=== PATIENT | female | born 1990 | race Caucasian/White ===

== ENCOUNTER 2016-09-12 10:08 | Emergency (ER) | payer OTHER ==
[~2016-09-12] VITALS: Ht 165.1 cm; Wt 56.3 kg
[~2016-09-12 10:08] MED LIST: ONDA4TAB7 SL
[2016-09-12 10:21] VITALS: TEMP 37.2; Ht 165.1 cm; Wt 56.3 kg
[2016-09-12] MEDS ORDERED: DPPRI400 SQ (10:58)
[2016-09-12] MEDS ORDERED: HYDR1OIN11 (11:00)
[2016-09-12] MEDS ORDERED: DIPH1TAB PO (11:00)
[2016-09-12] MEDS ORDERED: BUPRTAB PO (11:00)
[2016-09-12] MEDS ORDERED: PRED20TA2 PO (12:07)
[2016-09-12 12:17] VITALS: BP 101/67; PULSE 63; O2SAT 99
--- NOTE | 2016-09-12 17:42 | EMERGENCY ROOM VISIT NOTE ---
History Report prepared by Jhonatan: Sylvain Bowens Under the Supervision of: Dr. Angel Luis Kunz D.O. First contact with patient: 11:43 Chief Complaint: RASH Stated Complaint: ITCHY History of Present Illness The patient is a 26 year old female who presents to the Emergency Room with complaints of improving global itchiness that started at approximately 0 last night. The itchiness was worse this morning. The patient also noticed raised bumps on her back and side this morning that were the color of her skin. She did not notice any red rashes. The patient had two Benadryl caps upon arrival, and her itchiness has since improved. The patient started Wellbutrin two weeks ago. She has not started any new medications since then. The patient also denies using any new soaps or detergents. She did not wear any new clothing or enter any new buildings or shops. She has not been exposed to any new animals or pets. She denies any recent travel. Patient denies headache, change in vision, fevers, chest pain, shortness of breath, nausea, vomiting, diarrhea, pain with urination, and melena. Source of History: patient Onset: 1929 last night Position: other (skin (global)) Quality: other (itchiness) Timing: other (improving) Modifying Factors (Relieving): other (Benadryl) Associated Symptoms: No SOB, No chest pain, No diarrhea, No fevers, No headache, No melena, No nausea, No rash, No urinary symptoms, No vomiting Review of Systems See HPI for pertinent positives & negatives. A total of 10 systems reviewed and were otherwise negative. Past Medical & Surgical Medical Problems: (1) Nausea vomiting and diarrhea Family History Diabetes mellitus Social History Smoking Status: Never Smoker Alcohol Use: occasionally Drug Use: none Marital Status: single Occupation Status: unemployed Current/Historical Medications Scheduled Bupropion Hcl (Wellbutrin Xl), 1 TAB PO QAM Prednisone (Prednisone Tab), 1 TAB PO DAILY Miscellaneous Medications Diphenhydramine Hcl (Benadryl Allergy), 1 TAB PO Hydrocortisone (Topical) (Cortizone-10) Medroxyprogesterone Acetate (Depo-Provera), 1 DOSE SQ Allergies Coded Allergies: No Known Allergies (Unverified , 09/12/16) Physical Exam Vital Signs Date Time Temp Pulse Resp B/P Pulse Ox O2 Delivery O2 Flow Rate FiO2 09/12/16 12:17 63 16 101/67 99 09/12/16 10:21 37.2 99 18 125/89 99 Room Air Physical Exam GENERAL: Sitting on edge of bed, intermittently scratching, no acute distress, non toxic. EYE EXAM: normal conjunctiva. OROPHARYNX: no exudate, no erythema, lips, buccal mucosa, and tongue normal and mucous membranes are moist NECK: supple, no nuchal rigidity, no adenopathy, non-tender LUNGS: Clear to auscultation. Normal chest wall mechanics HEART: no murmurs, S1 normal and S2 normal ABDOMEN: abdomen soft, non-tender, normo-active bowel sounds, no masses, no rebound or guarding. BACK: Back is symmetrical on inspection and there is no deformity, no midline tenderness, no CVA tenderness. SKIN: no rashes and no bruising UPPER EXTREMITIES: upper extremities are grossly normal. LOWER EXTREMITIES: No pitting edema. NEURO EXAM: Normal sensorium, cranial nerves II-XII grossly intact, normal speech, no gross weakness of arms, no gross weakness of legs. Gross sensation intact. Medical Decision & Procedures Medications Administered Medications (Trade) Dose Ordered Sig/Nadja Route Start Time Stop Time Status Last Admin Dose Admin Prednisone (PredniSONE TAB) 20 mg NOW STAT PO 09/12/16 12:02 09/12/16 12:03 DC 09/12/16 12:16 20 MG ED Course ED COURSE: Vital signs were reviewed and were normal. The patients medical record was reviewed The above diagnostic studies were performed and reviewed. ED treatments and interventions as stated above. 1145: The patient was evaluated in room B5. A complete history and physical examination was performed. 1155: Discussed the treatment plan with her. She verbalized understanding and agreement. 1202: Prednisone 20 mg PO. 1205: Upon reevaluation, the patient is ready for discharge .I discussed my findings with the patient and she understands and agrees with the treatment plan. Based on the patients age, coexisting illnesses, exam and lab findings the decision to treat as an outpatient was made. The patient remained stable while under my care. The patient appeared well at the time of discharge. Medical Decision Differential diagnosis: Etiologies such as allergic reaction, anaphylaxis, urticaria, Sandoval-Arcadio syndrome, toxic epidermal necrolysis, erythema multiforme, cellulitis, as well as others were entertained. Patient is a 26-year-old female who presents the ER for diffuse itching throughout her entire body per she notes that she had a rash on her right side which was slightly raised red but this has resolved. 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 No new pets. She has taken Benadryl with almost complete resolution of the itching and rash. Only new medication is Wellbutrin which was started 2 weeks ago. I gave her small dose steroids and instructed her to follow-up with her primary care doctor on Thursday. If symptoms persist she will need to be further evaluated if this could be secondary to Wellbutrin at that time vs an environmental allergen. Discussed with Pt concerning signs and symptoms to watch out for. Pt was instructed to follow up with their PCP and discussed with the patient their option to return to the ED at anytime for persistent or worsening symptoms. The appropriate anticipatory guidance and out-patient management, including indications for return to the emergency department, were explained at length to the patient and understood. Impression Primary Impression: Itching Additional Impression: Rash Scribe Attestation The scribe's documentation has been prepared under my direction and personally reviewed by me in its entirety. I confirm that the note above accurately reflects all work, treatment, procedures, and medical decision making performed by me. Departure Information Dispostion Home / Self-Care Prescriptions Prednisone (Prednisone Tab) 20 Mg Tab 1 TAB PO DAILY, #4 TAB 2 TABS DAILY FOR 2 DAYS, THEN 1 TAB DAILY FOR 2 DAYS, THEN 1/2 TAB DAILY FOR 2 DAYS. Prov: Angel Luis Kunz DO 09/12/16 Referrals Zoraida Sotelo DO (PCP) Forms HOME CARE DOCUMENTATION FORM, IMPORTANT VISIT INFORMATION, WORK / SCHOOL INSTRUCTIONS Patient Instructions My [facility] Additional Instructions Please follow up with your primary care doctor with in the next 24 hours. Any worsening of your symptoms, please return to the ED immediately. This includes fevers grade and 100.4, confusion, persistent rash, worsening itching, or any other concerning signs or symptoms from your standpoint. Please take steroids as prescribed. Please take 50 mg of Benadryl every 6-8 hours as needed for itching. Problem Qualifiers
== END 2016-09-12 12:18 | disposition home or self-care (01) ==
LOC: C.EDB 10:09
DX: L29.9 Pruritus, unspecified (principal); R21 Rash and other nonspecific skin eruption; Z83.3 Family history of diabetes mellitus; Z79.899 Other long term (current) drug therapy

== ENCOUNTER 2016-09-16 12:48 | Emergency (ER) | payer OTHER ==
[~2016-09-16] VITALS: Ht 166.4 cm; Wt 58.0 kg
[~2016-09-16 12:48] MED LIST changes: +BUPRTAB PO; +DIPH1TAB PO; +DPPRI400 SQ; +HYDR1OIN11; -ONDA4TAB7 SL; +PRED20TA2 PO
[2016-09-16 12:53] VITALS: TEMP 37.1; Ht 166.4 cm; Wt 58.0 kg
[2016-09-16] MEDS ORDERED: SODIUM CHLORIDE 0.9% 1000ML 1,000 ML IV STA (13:14)
[2016-09-16] MEDS ORDERED: DiphenhydrAMINE HCL 50 MG/ML VIAL IV STA (13:14)
[2016-09-16] MEDS ORDERED: METHYLPREDNISOLONE 125 MG VIAL IV STA (13:14)
[2016-09-16] MEDS ORDERED: FAMOTIDINE 20MG/102 ML D5W IV STA (13:14)
--- NOTE | 2016-09-16 13:43 | DIAGNOSTIC IMAGING REPORT ---
SINGLE VIEW CHEST CLINICAL HISTORY: Atypical chest pain. FINDINGS: An AP, portable, upright chest radiograph is obtained. No prior studies are available for comparison at the time of dictation. The cardiomediastinal silhouette is unremarkable. The lungs and pleural spaces are clear. There is mild apical scarring. No pneumothorax is seen. The bony thorax is grossly intact. IMPRESSION: No active disease in the chest. Electronically signed by: Daryl Arora M.D. 09/16/2016 1:42 PM Dictated Date/Time: 09/16/2016 1:41 PM
[2016-09-16 14:01] LABS: BASO % 0.6 %; BASO ABS # 0.05 K/uL (0-0.2); COMPLETE YES; EOS % 6.3 %; HEMATOCRIT 41.7 % (37-47); IG% 0.1 %; LYMPH % 29.8 %; LYMPH ABS # 2.45 K/uL (1.2-3.4); MEAN CELL VOLUME 90.5 fL (80-100); MEAN CORPUSCULAR HEMOGLOBIN 32.1 pg (25-34); MEAN CORPUSCULAR HGB CONC 35.5 g/dl (32-36); MEAN PLATELET VOLUME 11.9 fL (7.4-10.4); MONO % 7.1 %; NEUT % 56.1 %; PLATELET COUNT 206 K/uL (130-400); RED BLOOD COUNT 4.61 M/uL (4.2-5.4); WHITE BLOOD COUNT 8.22 K/uL (4.8-10.8)
[2016-09-16 14:20] LABS: BLOOD UREA NITROGEN 8 mg/dl (7-18); BUN/CREATININE RATIO 10.1 (10-20); CALCIUM 9.1 mg/dl (8.5-10.1); CARBON DIOXIDE 24 mmol/L (21-32); CHLORIDE 105 mmol/L (98-107); CREATININE 0.82 mg/dl (0.60-1.20); GLUCOSE 85 mg/dl (70-99); SODIUM 138 mmol/L (136-145)
[2016-09-16 14:25] LABS: ALKALINE PHOSPHATASE 59 U/L (45-117); ALT/SGPT 23 U/L (12-78); AST/SGOT 12 U/L (15-37)
[2016-09-16 14:34] LABS: PREG INTERNAL NEGATIVE QC NEG CLEAR BACKGROUND; PREG INTERNAL POSITIVE QC POS CONTROL LINE
[2016-09-16 15:00] VITALS: BP 110/72; PULSE 75; O2SAT 99
--- NOTE | 2016-09-16 21:55 | EMERGENCY ROOM VISIT NOTE ---
ED Visit Note First contact with patient: 12:59 Chief Complaint: Chest pain. History of Present Illness: Ms. Torres is a 26-year-old white female who ambulates into the ED complaining of chest pain caused by allergic reaction to Wellbutrin. Patient was seen in this emergency department 4 days ago for a rash and itchy skin. It was felt that she was having a reaction to Wellbutrin which she started approximately 2 weeks earlier to help her stop smoking. She was discharged on steroids but has not filled the prescription. Patient reports 3 days ago she developed a pressure sensation in her chest. Since that time she reports her pain has been intermittent and self resolves. Last night her pain was severe and just prior to being seen by myself and read as old. She places this discomfort over the anterior sternal area. She describes it as a pressure sensation. At its times a day she rated her discomfort 8/10. The pain was nonradiating. Associated with the pain she reports she felt like her heart was racing. Currently she reports resolution of her pressure sensation and is only experiencing "tightness". She does not perceive this is pain and does not rated her discomfort. The tightness is nonradiating. Associated with her tightness she's does feel like her heart is still racing. Associated with all her symptoms she still reports she is developing hives and itchy skin. She also reports that she is currently smoking and she is on Depo-Provera for control. She denies fevers, chills, sweats, sensations of throat swelling, difficulty speaking, difficulty swallowing, cough, wheezing, shortness of breath, orthopnea , dependent edema, previous clots, claudication, cramping, recent surgery/ inactivity/extended travel, abdominal pain, nausea, vomiting. Review of Systems: As noted above in history of present illness. All body systems were reviewed and found to be negative as noted above. Past Medical History: Drug abuse. Current Medications: Depo-Provera. Allergies to Medications: Bupropion. Social History: Patient is currently employed; she feels safe in her home environment; she admits to tobacco use and denies alcohol use. Physical Examination: Vital Signs: Date Time Temp Pulse Resp B/P Pulse Ox O2 Delivery O2 Flow Rate FiO2 09/16/16 15:00 75 110/72 99 09/16/16 14:09 73 17 109/74 100 09/16/16 13:34 91 09/16/16 13:04 Room Air 99 09/16/16 12:53 37.1 107 18 126/80 99 Room Air GENERAL: 26-year-old female in mild distress due to symptoms, nontoxic-appearing , afebrile and hemodynamically stable. NEUROLOGICAL: Awake, alert and oriented to person, place and time. Answering questions appropriately and following commands. Normal gait. Good hand eye coordination. No focal motor sensory deficits. SKIN: Warm, dry and pink. No soft tissue eruptions or trauma noted. Positive dermatographia test. HEENT: Atraumatic and normocephalic. PERRLA. Sclera white and conjunctiva pink. No drainage from naris. Oral cavity moist and pink. Pharynx is nonerythematous or edematous. Speech normal. No lymphadenopathy. Trachea midline. No jugular venous distention. No auditory or auscultatory stridor. No carotid bruits. BACK: No tenderness over the bony spine. No CVA tenderness. THORAX: Lungs sounds are clear to auscultation and equal bilaterally with symmetrical chest wall. No wheezing, rales or rhonchi. No crepitus, tenderness , subcutaneous air or deformities noted. HEART: Tachycardic rate and rhythm. No gallops, rubs or murmurs are appreciated. PMI is not displaced. No lifts, heaves or thrills. ABDOMEN: Flat, soft and nontender. Positive bowel sounds in all quadrants. No guarding, rigidity or organomegaly. EXTREMITIES: Moves all extremities well on command and with purpose. All distal neurovascular statuses are intact and equal bilaterally. No calf tenderness or cords. ED Course: Patient is assessed as noted above. Laboratory Testing: Test 09/16/16 13:43 09/16/16 13:50 Range/Units White Blood Count 8.22 4.8-10.8 K/uL Red Blood Count 4.61 4.2-5.4 M/uL Hemoglobin 14.8 12.0-16.0 g/dL Hematocrit 41.7 37-47 % Mean Corpuscular Volume 90.5 80-100 fL Mean Corpuscular Hemoglobin 32.1 25-34 pg Mean Corpuscular Hemoglobin Concent 35.5 32-36 g/dl Platelet Count 206 130-400 K/uL Mean Platelet Volume 11.9 7.4-10.4 fL Neutrophils (%) (Auto) 56.1 % Lymphocytes (%) (Auto) 29.8 % Monocytes (%) (Auto) 7.1 % Eosinophils (%) (Auto) 6.3 % Basophils (%) (Auto) 0.6 % Neutrophils # (Auto) 4.61 1.4-6.5 K/uL Lymphocytes # (Auto) 2.45 1.2-3.4 K/uL Monocytes # (Auto) 0.58 0.11-0.59 K/uL Eosinophils # (Auto) 0.52 0-0.5 K/uL Basophils # (Auto) 0.05 0-0.2 K/uL RDW Standard Deviation 41.9 36.4-46.3 fL RDW Coefficient of Variation 12.7 11.5-14.5 % Immature Granulocyte % (Auto) 0.1 % Immature Granulocyte # (Auto) 0.01 0.00-0.02 K/uL Sodium Level 138 136-145 mmol/L Potassium Level 4.0 3.5-5.1 mmol/L Chloride Level 105 98-107 mmol/L Carbon Dioxide Level 24 21-32 mmol/L Anion Gap 9.0 3-11 mmol/L Blood Urea Nitrogen 8 7-18 mg/dl Creatinine 0.82 0.60-1.20 mg/dl Est Creatinine Clear Calc Drug Dose 96.0 ml/min Estimated GFR () 115.3 Estimated GFR (Non- 99.5 BUN/Creatinine Ratio 10.1 10-20 Random Glucose 85 70-99 mg/dl Calcium Level 9.1 8.5-10.1 mg/dl Total Bilirubin 0.3 0.2-1 mg/dl Direct Bilirubin < 0.1 0-0.2 mg/dl Aspartate Amino Transf (AST/SGOT) 12 15-37 U/L Alanine Aminotransferase (ALT/SGPT) 23 12-78 U/L Alkaline Phosphatase 59 45-117 U/L Total Creatine Kinase 53 26-192 U/L Creatine Kinase MB < 0.5 0.5-3.6 ng/ml Creatine Kinase MB Ratio 0-3.0 Total Protein 8.2 6.4-8.2 gm/dl Albumin 4.6 3.4-5.0 gm/dl Lipase 209 73-393 U/L Human Chorionic Gonadotropin, Qual NEG NEG Bedside D-Dimer 231 0-450 ng/mlFEU Bedside Troponin I 0.000 0-0.045 ng/ml Chest X-Ray: Was read by myself and the radiologist showing no acute infiltrates , effusions or pneumothorax. Normal heart silhouette and bony anatomy. EKG: Was read by myself and reviewed with Dr. Aguilar; shows normal sinus rhythm with a ventricular rate of 100 bpm. Normal axis, intervals and complexes. No acute ST changes indicating ischemia, injury or infarction. No previous to compare. Patient was hydrated with normal saline and she received 50 mg of Benadryl IV, 125 mg of Solu-Medrol IV and 20 mg of Pepcid IV for her symptoms. Patient was reassessed multiple times during her stay in the emergency department. Patient's case was reviewed with Dr. Aguilar; we agreed on diagnostic approach, treatment, disposition and plan. Patient was educated about tonight's findings and instructed on her treatment plan; she verbalizes understanding and agreement with this plan. Clinical Impression: Acute chest pain. Hives. Possible reaction to Wellbutrin. Disposition: Patient discharged home in stable condition; prior to departure she was reassessed and subjectively reported she was feeling much better and was pain and symptom-free. Plan: Patient was encouraged to fill her prescription for prednisone that she received a couple days ago and complete the prescription. Patient was encouraged to use 50 mg of Benadryl every 6 hours and 150 milligrams of Zantac every 12 hours until resolution of hives and itchy skin. Patient was encouraged use 650 mg of acetaminophen every 6 hours as needed for pain. Patient was encouraged to stay well hydrated. Patient was encouraged to avoid tobacco and estrogen use as they increased her risk of blood clots. Patient was encouraged follow-up with family physician for recheck in one to 2 days. Patient was encouraged return the ED for worsening/uncontrolled chest discomfort , shortness of breath/wheezing, sensations of throat swelling, worsening eyes or any new/concerning symptoms.
== END 2016-09-16 15:01 | disposition home or self-care (01) ==
LOC: C.EDB 12:49 → C.EDA 15:01
DX: R07.9 Chest pain, unspecified (principal); L50.9 Urticaria, unspecified; F17.200 Nicotine dependence, unspecified, uncomplicated